=== PATIENT | male | born 1960 | race Caucasian/White ===

== ENCOUNTER 2016-12-13 08:05 | Day surgery (SDC) | payer OTHER ==
[~2016-12-13] VITALS: Ht 175.3 cm; Wt 79.4 kg
[~2016-12-13 08:05] MED LIST: Sodium Chloride LOK Flush 10 mL Syringe IV PRN; fentaNYL-PF 50 mCg/mL 2 mL Inj IVPUSH PRN
[2016-12-13 08:34] VITALS: BP 155/104; PULSE 88; RESP 16; O2SAT 99
[2016-12-13 08:42] VITALS: BP 141/103
[2016-12-13] MEDS: 0.9% Sodium Chloride 1,000 ML IV SCH ×3 (08:50→09:11)
[2016-12-13 09:29] VITALS: BP 126/81; PULSE 84; RESP 16; O2SAT 98
[2016-12-13 09:39] VITALS: BP 123/77; PULSE 76; RESP 16; O2SAT 93
[2016-12-13 09:49] VITALS: BP 139/92; PULSE 77; RESP 16; O2SAT 97
--- NOTE | 2016-12-13 10:10 | ENDO ---
[address] [address] ENDOSCOPY PROCEDURE PATIENT: RACHEL RANKIN : 1960 MR#: [id number] ADMIT: 12/13/2016 JOB ID: [id number] DATE: 12/13/2016 PROCEDURE: Colonoscopy. INDICATIONS: Screening. The patient's ASA classification is 1. Mallampati score is 2. MEDICATIONS: 1. Versed 5 mg. 2. Fentanyl 100 mcg. INSTRUMENT USED: PCF H 180 AL. PREPARATION QUALITY: Was good. PROCEDURE DETAILS: After informed consent was obtained, the patient was brought into the GI suite, where he was placed on oxygen via nasal cannula and monitored with continuous pulse oximeter, telemetry and blood pressure monitoring. A time-out was performed. Then, he was placed in the left lateral decubitus position and medications were administered for sedation. Digital rectal examination with palpation of the prostate was performed and was unremarkable. The colonoscope was then inserted into the rectum and advanced under direct visualization to the cecum, which was identified by the presence of the ileocecal valve and appendiceal orifice. Once the cecum was reached, the colonoscope was withdrawn back into the rectum as mucosa and lumen were examined. In the rectum, retroflexion was performed. Following retroflexion, remaining air in the rectum was suctioned, and procedure was completed. FINDINGS: 1. In the descending colon, there were two diminutive polyps that were removed with cold biopsy forceps. 2. In the sigmoid colon, there were two diminutive polyps that were removed with cold biopsy forceps. 3. In the rectum, there was an approximately 6 mm sessile polyp that was removed with a hot snare. 4. In the distal rectum, there was a diminutive polyp that was removed with cold biopsy forceps. IMPRESSION: 1. Two descending colon polyps. 2. Two sigmoid polyps. 3. Two rectal polyps. RECOMMENDATIONS: 1. Avoid nonsteroidal anti-inflammatory drugs and anticoagulants for 72 hours. 2. Repeat colonoscopy in three years. COMPLICATIONS: None. ESTIMATED BLOOD LOSS: Less than 5 mL.
--- NOTE | 2016-12-14 13:32 | PATH ---
SURGICAL PATHOLOGY Attending Physician:Colton Carlson CASE STATUS: Signed Out PATIENT NAME: RACHEL RANKIN PID: [id number] : 1960 DATE COLLECTED:12/13/2016 18:20 SPECIMEN: 1: Colon, Biopsy 2: Colon, Biopsy 3: Rectum, Biopsy CLINICAL HISTORY: SCREENING, COLON POLYPS 1). DESCENDING COLON POLYPS X2 2). SIGMOID POLYP X2 3). RECTAL POLYP X2 FINAL DIAGNOSIS: 1.DESCENDING COLON POLYPS: TUBULAR ADENOMAS. 2.SIGMOID POLYPS: HYPERPLASTIC POLYPS. 3.RECTAL POLYPS: TUBULAR ADENOMA, TWO FRAGMENTS. HYPERPLASTIC POLYP, ONE FRAGMENT. ICD10 CODE D12.4 D12.8 K63.5 K62.1 GROSS DESCRIPTION: The specimen is received in three formalin filled containers labeled with the patient's name. 1). The specimen is sublabeled "descending colon polyps" and consists of 4 portions of tissue which aggregate to 0.3 x 0.3 x 0.3 CM. The specimen is entirely submitted in cassette 1A. 2). The specimen is sublabeled "sigmoid polyp" and consists of 2 portions of tissue which aggregate to 0.3 x 0.2 x 0.2 CM. The specimen is entirely submitted in cassette 2A. 3). The specimen is sublabeled "rectal polyps" and consists of 3 portions of tissue which aggregate to 0.3 x 0.3 x 0.3 CM. The specimen is entirely submitted in cassette 3A. 12/13/2016 DAC MICRO DESCRIPTION: See diagnosis. ICD-9 CODES: CPT CODES: 1: 54862 2: 13115 3: 07947 Electronically Signed Out Josie Young MD [facility] [address], [place] [address] Technical component performed at [facility], [address] [place] [address] Ave[address], [place], [address]
== END 2016-12-13 23:59 ==
LOC: END 08:05
PROVIDERS: ATTEND Internal Medicine Gastroenterology
DX: Z12.11 Encounter for screening for malignant neoplasm of colon (principal); D12.4 Benign neoplasm of descending colon; K63.5 Polyp of colon; D12.8 Benign neoplasm of rectum
CPT/HCPCS: 45380; 45385; 88305; G0500; J7030